=== PATIENT | female | born 1950 | race Caucasian/White ===

== ENCOUNTER 2024-12-26 08:38 | Day surgery (SDC) | payer MEDICARE, SELFPAY ==
[2024-12-26] VITALS (14 sets, daily range): BP systolic 94–124; BP diastolic 52–88; PULSE 52–68; RESP 14–20; TEMP 36.1–36.2; O2SAT 94–100; BMI 24.7
[2024-12-26] MEDS: LACTATED RINGERS 1000 ML 1,000 ML 100 ML IV (09:44)
--- NOTE | 2024-12-26 10:19 | P.ANES_ITS ---
Anesthesia Charges Start Date/Time Anesthesia Start Date: 12/26/24 Anesthesia Start Time: 07:35 Stop Date/Time Anesthesia Stop Date: 12/26/24 Anesthesia Stop Time: 10:20 Summary Extremes of Age - Over 70 or under 1: PASSENGER SERVICE MANAGER Coding CPT Codes CPT Codes: ANESTH KNEE ARTHROPLASTY - 48163 ([id number]) P3 - PATIENT W/SEVERE SYS DISEASE, QK - GLASS CLEANER 2-4 CNCRNT ANES PROC Additional Codes: Summary - Extremes of Age - Over 70 or under 1: PASSENGER SERVICE MANAGER ([id number])
--- NOTE | 2024-12-26 10:19 | W.ANESCHARGE ---
Anesthesia Charges Start Date/Time Anesthesia Start Date: 12/26/24 Anesthesia Start Time: 07:35 Stop Date/Time Anesthesia Stop Date: 12/26/24 Anesthesia Stop Time: 10:20 Summary Extremes of Age - Over 70 or under 1: ENTERPRISE ARCHITECT MANAGER Coding CPT Codes CPT Codes: ANESTH KNEE ARTHROPLASTY - 05763 ([id number]) P3 - PATIENT W/SEVERE SYS DISEASE, QK - PROMOTIONS SPECIALIST 2-4 CNCRNT ANES PROC Additional Codes: Summary - Extremes of Age - Over 70 or under 1: ENTERPRISE ARCHITECT MANAGER ([id number])
--- NOTE | 2024-12-26 11:03 | SUR.OPER ---
PATIENT QUESTIONS ANSWERED SATISFACTORILY PREOPERATIVELY.? PATIENT BROUGHT TO OR #3 PER CART.? Patient positioned supine on OR #3 bed.? The perioperative?team supported arms bilaterally on arm boards.? Final approval of positioning by surgeon.? CONTINUOUS IRRIGATION OF THE RIGHT KNEE DURING THE PROCEDURE WITH NACL.
--- NOTE | 2024-12-26 11:15 | PM.ORPRC ---
Procedure Note Date of procedure: 12/26/24 Procedure: PREOPERATIVE DIAGNOSIS: Left knee medial meniscus tear POSTOPERATIVE DIAGNOSIS: Left knee medial meniscus tear NAME OF OPERATION: Left knee arthroscopic partial medial meniscectomy SURGEON: Aris Frey MD SANITATION TRUCK CLEANER: Jania Byrnes PA-C ANESTHESIA: Spinal ESTIMATED BLOOD LOSS: 0 mL COMPLICATIONS: None SPECIMENS: None DRAINS: None PREOPERATIVE ANTIBIOTICS: Ancef 2 gram INDICATIONS: The patient is a 74-year-old with a history of left knee medial pain. MRI scan is consistent with a medial meniscus tear. Despite appropriate nonoperative management, including activity modification, antiinflammatories, [id number] pain medication, bracing, physical therapy, and injections they continue to have pain and disability. Operative intervention was offered. The risks, benefits and expected outcomes were discussed in detail. These included but were not limited to: Infection, bleeding, injury to blood vessel or nerve, venous thromboembolism. All questions were answered to their satisfaction. PROCEDURE: Spinal anesthesia was administered. The patient was placed supine on the operating room table. The left lower extremity was prepped and draped in the usual sterile fashion. The limb was exsanguinated with the Chapo bandage. The pneumatic tourniquet was inflated to 300 mmHg. A standard anterolateral portal was established. The arthroscope was introduced. The working portal was established anteromedially. Diagnostic arthroscopy was performed with findings as follows: The suprapatellar pouch is normal. Articular surface on the patella diffuse grade 1/2 change. Articular surface on the trochlea diffuse grade 2 change. The medial gutter is normal. The medial compartment shows diffuse grade 3 change on the medial femoral condyle, grade 2 change on the medial tibial plateau. The medial meniscus has a complex degenerative tear at the junction of the midbody and posterior horn. This consists of horizontal cleavage tearing. The superior leaflet has radial tearing which results in both an anteriorly and posteriorly based unstable flap. The notch shows the ACL to be intact. The lateral compartment shows normal articular cartilage on the lateral femoral condyle and lateral tibial plateau. The lateral meniscus is normal. The lateral gutter is normal. The midbody and posterior horn of the medial meniscus was debrided with the shaver through both portals. We preserved the inferior leaflet and resected the superior leaflet. Unstable chondral flaps on the medial femoral condyle were debrided with the shaver. Arthroscopic instruments were removed, the portal sites were Steri-Stripped closed, the knee was infiltrated with 30 mL of 0.25% Marcaine without epinephrine. A dry dressing was applied, the tourniquet was released. Sponge and needle counts were correct x 2. The patient tolerated the procedure well. There were no apparent complications. They were carefully transferred to the hospital bed and taken to the postanesthesia care unit in satisfactory condition. PLAN: The patient will be discharged to home. They may weightbear as tolerates. Range of motion will be unrestricted. They will follow up in the office next week for a wound check.
--- NOTE | 2024-12-26 11:24 | P.ANES_ITS ---
Anesthesia Charges Start Date/Time Anesthesia Start Date: 12/26/24 Anesthesia Start Time: 10:33 Stop Date/Time Anesthesia Stop Date: 12/26/24 Anesthesia Stop Time: 11:25 Coding CPT Codes CPT Codes: ANESTH KNEE JOINT SURGERY - 06813 ([id number]) P2 - PATIENT W/MILD SYST DISEASE, QK - ICU STAFF NURSE 2-4 CNCRNT ANES PROC, QX - REAL ESTATE BRANCH MANAGER SVC W/ MD MED DIRECTION
--- NOTE | 2024-12-26 11:24 | W.ANESCHARGE ---
Anesthesia Charges Start Date/Time Anesthesia Start Date: 12/26/24 Anesthesia Start Time: 10:33 Stop Date/Time Anesthesia Stop Date: 12/26/24 Anesthesia Stop Time: 11:25 Coding CPT Codes CPT Codes: ANESTH KNEE JOINT SURGERY - 79948 ([id number]) P2 - PATIENT W/MILD SYST DISEASE, QK - PROCUREMENT INTERNSHIP 2-4 CNCRNT ANES PROC, QX - NETWORK CONTROL OPERATORS SUPERVISOR SVC W/ MD MED DIRECTION
--- NOTE | 2024-12-26 11:42 | P.ANES_ITS ---
Anesthesia Charges Start Date/Time Anesthesia Start Date: 12/26/24 Anesthesia Start Time: 10:33 Stop Date/Time Anesthesia Stop Date: 12/26/24 Anesthesia Stop Time: 11:25 Summary Extremes of Age - Over 70 or under 1: MDA Coding CPT Codes CPT Codes: ANESTH KNEE JOINT SURGERY - 19456 ([id number]) QK - COMMERCIAL LIGHT FIXTURE ASSEMBLER 2-4 CNCRNT ANES PROC, QX - UNLOADER OPERATOR SVC W/ MD MED DIRECTION, P2 - PATIENT W/MILD SYST DISEASE Additional Codes: Summary - Extremes of Age - Over 70 or under 1: MDA ([id number])
--- NOTE | 2024-12-26 11:57 | SUR.PHASEI ---
No pain or nausea, patient has very restless legs, consulted with Stella Renteria and hydroxyzine given 25 mg orally.
--- NOTE | 2024-12-26 12:12 | SUR.PHASEI ---
Patient meets discharge criteria from PACU.
--- NOTE | 2024-12-26 12:19 | SUR.PHASEII ---
On entry to Phase II, patient is having Restless Leg spasms. Patient has known history of RLS. Patient states no improvement after Hydroxyzine in Phase I. Phase I RN spoke with Dr. Enamorado who states it can be caused by the Spinal. He anticipates her symptoms to improve as the spinal wears off. Patient verbalizes understanding. Call light within reach. Spouse at the bedside.
[2024-12-26] MEDS: ACETAMINOPHEN 500 MG TABLET 1000 MG PO (13:20)
== END 2024-12-26 13:30 | disposition home or self-care (01) ==
LOC: OR 08:39
PROVIDERS: PCP Family Medicine; Visit Provider Orthopaedic Surgery
PROC: (CPT 29870; principal; 2024-12-26 10:00)
DX: M23.222 Derangement of posterior horn of medial meniscus due to old tear or injury, left knee (principal)
CPT/HCPCS: 29881; 01400; 01402; 99100; A9270; J0690; J1100; J2250; J2405; J2704; J7120